=== PATIENT | female | born 2000 | race Caucasian/White ===

== ENCOUNTER 2022-04-01 21:58 | Emergency (ER) | payer BC, SELFPAY ==
[2022-04-01 22:19] VITALS: BP 118/78; PULSE 85; RESP 16; TEMP 36.7; O2SAT 99; BMI 25.7
[2022-04-01 22:49] LABS: Strep A DNA Probe* NOT DETECTED (Not Detectd)
[2022-04-01 23:01] LABS: PCR FLU A Negative PCR FLU A (Negative); PCR FLU B Negative PCR FLU B (Negative)
[2022-04-01 23:06] LABS: SARS PCR* Negative SARS-CoV-2 (Negative)
--- NOTE | 2022-04-01 23:22 | ED_ITS ---
HPI - URI/Sore Throat General Time Seen by Provider: 23:22 Date Seen: 04/01/22 Chief Complaint: Sore Throat Stated Complaint: Sore Throat Time Seen by Provider: 04/01/22 23:22 Source: patient, RN notes reviewed and old records reviewed Mode of arrival: ambulatory Limitations: no limitations History of Present Illness HPI Narrative: Patient is a very pleasant 21-year-old female previously healthy who notes onset of a sore throat yesterday and associated is chin with some burning when she breathes and back pain. This morning patient notes white specks at the back of her throat and states that is hard to swallow although she has had food and drink today. She does have recent exposure to her friend who is here today who are had bronchitis type symptoms. She also notes she was exposed to her dad who had a cough. She herself does not have a cough. She has been nauseated. She has been able to cough up some white phlegm occasionally. She has no fever chil ls. She did have youth care professional yesterday for some back pain which she has chronically. No history of mono or strep exposure Related Data Home Medications Medication Instructions Recorded Confirmed sertraline 50 mg tablet 50 mg PO DAILY 04/01/22 04/01/22 Allergies Allergy/AdvReac Type Severity Reaction Status Date / Time No Known Drug Allergies Allergy Verified 04/01/22 22:22 Review of Systems Status of ROS: Reports: 6 or more systems reviewed and unremarkable except as noted in History and below [facility] Medical History Anxiety Depression Surgical History No significant past surgical history Social History Smoking Status: Never smoker Do you use any of these nicotine containing products: None Second hand tobacco smoke exposure: No How often do you have a drink containing alcohol: never How often do you have six or more drinks on one occasion: Never AUDIT-C Alcohol total score: 0 Non-prescribed substance use: denies use Exam Narrative: Exam Narrative: Patient is alert and oriented. Nontoxic in appearance. No muffled voice. Normal voice at this time. Eyes are clear. TMs bilaterally without erythema or fluid. Neck is supple. Mild cervical lymphadenopathy anterior. No posterior cervical lymphadenopathy. Oral cavity shows enlarged tonsils with multiple foci of exudate. Airway is open. No difficulty with respirations at this time no stridor. Heart with regular rate and rhythm lungs are clear to auscultation all lung reeder and moving all extremities. Const: Vital Signs, click to edit/add: Vital Signs - 24 hr 04/01/22 22:19 04/02/22 00:00 04/02/22 00:10 Temperature 98.0 F 98.0 F 98.0 F Pulse Rate [Right Pulse Oximeter] 85 84 84 Respiratory Rate 16 16 16 Blood Pressure [Ri ght Upper Arm] 118/78 120/74 120/74 Pulse Oximetry 99 99 Oxygen Delivery Me thod Room Air Room Air Documenting provider has reviewed patient's vital signs: yes Course Course Hospital Course: Differential diagnosis could include strep, mono, influenza, COVID, viral pharyngitis. Vital Signs Vital signs: Initial Vital Signs Temperature 98.0 F 04/01/22 22:19 Temperature Source Temporal Artery Scan 04/01/22 22:19 Pulse Rate 85 04/01/22 22:19 Respiratory Rate 16 04/01/22 22:19 Blood Pressure 118/78 04/01/22 22:19 Blood Pressure Mean 91 04/01/22 22:19 Blood Pressure Position Sitting 04/01/22 22:19 Pulse Oximetry 99 04/01/22 22:19 Oxygen Delivery Method 04/01/22 22:19 Vital Signs Temperature 98.0 F 04/01/22 22:19 Pulse Rate 85 04/01/22 22:19 Respiratory Rate 16 04/01/22 22:19 Blood Pressure 118/78 04/01/22 22:19 Pulse Oximetry 99 04/01/22 22:19 Oxygen Delivery Method 04/01/22 22:19 Temperature 98.0 F 04/02/22 00:10 Pulse Rate 84 04/02/22 00:10 Respiratory Rate 16 04/02/22 00:10 Blood Pressure 120/74 04/02/22 00:10 Pulse Oximetry 99 04/02/22 00:00 Oxygen Delivery Method 04/02/22 00:00 MDM - URI/Sore Throat MDM Narrative Medical decision making narrative: 1. Tonsillitis-patient is negative for strep COVID and influenza. Throat culture was accomplished. Given the nature of patient's appearance I would recommend antibiotic treatment. I do have a slight worry for mono and therefore will treat with Zithromax 500 mg today followed by 250 mg daily for 4 days. If patient is much improved after 24 hours she should finish out her course of antibiotic and assume that this was a bacterial infection. Of course a throat culture again is pending. If patient is not improve would recommend follow-up with her primary clinic. I did explain that a mono test today would not be helpful giving the that she has had symptoms for only 24 hours. Recommend repeat exam abdominal exam if she test positive for mono. Abdomen is soft nontender today. 2. Disposition-Tylenol ibuprofen as needed for discomfort. Return to the emergency room for vomiting, inability to eat, worsening symptoms and as needed. Medical Records Attestation: I reviewed the patient's medical records. Lab Data Attestation: I reviewed the patient's lab results. Labs: Lab Results 04/01/22 04/01/22 Range/Units 22:11 22:11 SARS-CoV-2 (PCR) Negative SARS-CoV-2 (Negative) Influenza Type A (PCR) Negative PCR FLU A (Negative) Influenza Type B (PCR) Negative PCR FLU B (Negative) Group A Strep DNA NOT DETECTED (Not Detectd) Discharge Plan Discharge Clinical Impression: Acute tonsillitis Patient Disposition: Home, Self-Care Condition: Unchanged Additional Instructions: Start zithromax for tonsillitis and possibility of non -strep infection If you are better after 24 hours, finish the full course Alternate tylenol or ibuprofen every 4 hours as needed for discomfort Push fluids if not improved, I suggest follow up with your primary MD next week. I would ask that a mono be checked and abdominal exam done. Return to the ER for worsening symptoms Prescriptions: No Action sertraline 50 mg tablet 50 mg PO DAILY Follow Up/Referrals: Tata Weeks MD [Staff Physician] - Stand Alone Forms: GOGETMi / ?.?? Info Instructions
[2022-04-02] VITALS: BP 120/74; PULSE 84; RESP 16; TEMP 36.7; O2SAT 99
[2022-04-02 00:10] VITALS: BP 120/74; PULSE 84; RESP 16; TEMP 36.7
== END 2022-04-02 00:10 | disposition home or self-care (01) ==
PROVIDERS: Emergency Provider Family Medicine; PCP Family Medicine
DX: J03.90 Acute tonsillitis, unspecified (principal)
CPT/HCPCS: 87070; 87631; 87651; 99283

== ENCOUNTER 2022-04-23 14:38 | Inpatient (IN) | payer BC, SELFPAY ==
[2022-04-23] VITALS (13 sets, daily range): BP systolic 121–152; BP diastolic 67–89; PULSE 56–73; RESP 14–16; TEMP 35.6–37.9; O2SAT 96–100; BMI 27.1
--- NOTE | 2022-04-23 15:07 | ED_ITS ---
HPI - Abdominal Pain General Date Seen: 04/23/22 Chief Complaint: Abdominal Pain Stated Complaint: Abdominal Pain Time Seen by Provider: 04/23/22 14:56 Source: patient Mode of arrival: ambulatory Limitations: no limitations History of Present Illness HPI narrative: Patient is a 21-year-old female who presents here with severe abdominal pain, this started acutely at 1:00 a.m. this afternoon, is associated with vomiting, she describes her pain in her lower abdomen bilaterally, with radiation to her back. She did have this before has never had this in the past. Denies a fevers chills, normal bowel movements, no vaginal discharge, tells me she is a lesbian and there is no possible way she is . No previous history of any abdominal surgeries or hospitalizations. Denies trauma injury, constipation, history of kidney stones, UTIs, or STDs. She has fairly vulgar in the emergency room swearing. MD elicited complaint: abdominal pain Pertinent past history: none Onset (ago): hour(s) Pain Consistency: constant Location: RLQ, LLQ and suprapubic Severity: severe Quality: cramping and sharp Radiation: back Migration to: no migration Exacerbating factors: movement Relieving factors: nothing Associated symptoms: denies other symptoms Related Data Date of last menstrual period: 04/23/22 Patient : No Home Medications Medication Instructions Recorded Confirmed sertraline 50 mg tablet 50 mg PO DAILY 04/01/22 04/01/22 Allergies Allergy/AdvReac Type Severity Reaction Status Date / Time No Known Drug Allergies Allergy Verified 04/23/22 16:49 Review of Systems Status of ROS Reports: 10 or more systems reviewed and unremarkable except as noted in History and below [facility] Medical History Anxiety Depression Surgical History No significant past surgical history Social History Smoking Status: Never smoker Do you use any of these nicotine containing products: None Second hand tobacco smoke exposure: No How often do you have a drink containing alcohol: never How often do you have six or more drinks on one occasion: Never AUDIT-C Alcohol total score: 0 Non-prescribed substance use: denies use Exam Narrative: Exam Narrative: Patient is seen and stabilization room 1, she has thoracic around, uncomfortable, complaining of pain in her lower abdomen. She is swearing also. Her pupils are equal round reactive to light there is no scleral icterus redness or TMs are normal, oropharynx is normal, recent wisdom teeth surgery. For which she was prescribed Vicodin. Chest is clear bilaterally there is no wheezing crackles noted heart sounds her abdomen is soft, but she complains of pain in h er lower abdomen, I cannot hear any bowel sounds there is no CVA tenderness, moves all extremities there is no petechiae rashes. Const: Vital Signs, click to edit/add: Vital Signs - 24 hr 04/23/22 14:45 04/23/22 18:22 Temperature 96.0 F L 98.3 F Pulse Rate [Pulse Oximeter] 67 56 L Respiratory Rate 14 Blood Pressure [Ri ght Upper Arm] 152/67 H 129/84 Pulse Oximetry 98 98 Oxygen Delivery Me thod Room Air Room Air Documenting provider has reviewed patient's vital signs: yes Course Course Hospital Course: Patient is just thrashing around too much we will start an IV I will give her some pain medication, to see if we can, down enough that I can do a legitimate examination on her abdomen, we will order labs with the abdominal pain workup, and likely some imaging studies. Reevaluation(s) Reevaluation #1: Patient seems to be a little bit better, at least with her pain, she is still uncomfortable, still with pain in her lower abdominal region, the CT shows intussusception I contacted her surgeon Dr. Rucker, she is coming in to see the patient in taking her to the operating room. He is ASA 1 for the surgery, we will continue her fluids. Time: 17:59 Vital Signs Vital signs: Initial Vital Signs Temperature 96.0 F L 04/23/22 14:45 Temperature Source Temporal Artery Scan 04/23/22 14:45 Pulse Rate 67 04/23/22 14:45 Blood Pressure 152/67 H 04/23/22 14:45 Blood Pressure Mean 95 04/23/22 14:45 Blood Pressure Position Sitting 04/23/22 14:45 Pulse Oximetry 98 04/23/22 14:45 Oxygen Delivery Method 04/23/22 14:45 Vital Signs Temperature 96.0 F L 04/23/22 14:45 Pulse Rate 67 04/23/22 14:45 Blood Pressure 152/67 H 04/23/22 14:45 Pulse Oximetry 98 04/23/22 14:45 Oxygen Delivery Method 04/23/22 14:45 Temperature 98.3 F 04/23/22 18:22 Pulse Rate 56 L 04/23/22 18:22 Respiratory Rate 14 04/23/22 18:22 Blood Pressure 129/84 04/23/22 18:22 Pulse Oximetry 98 04/23/22 18:22 Oxygen Delivery Method 04/23/22 18:22 MDM - Abdominal Pain MDM Narrative Medical decision making narrative: During the evaluation of this patient I considered multiple differential diagnos is including life-threatening differentials which are appendicitis, aortic aneurysm, mesenteric ischemia, bowel perforation, ectopic , volvulus and bowel obstruction, other differential diagnosis include but are not limited to inflammatory bowel disease, cholecystitis, pancreatitis, hepatitis, gastritis, GERD, diverticulitis, peptic ulcer disease, pyelonephritis/UTI, renal colic/stone, pelvic inflammatory disease, cervicitis, endometritis, intrauterine , dysfunctional uterine bleeding, ovarian cyst/torsion, spontaneous as well as other etiologies Medical Records Attestation: I reviewed the patient's medical records. Medical records narrative: Was able to see the records from [facility] and there is no recent hospitalizations or surgeries. Recent visit for depression, Lab Data Attestation: I reviewed the patient's lab results. Labs: Lab Results 04/23/22 04/23/22 04/23/22 Range/Units 14:55 14:55 14:55 WBC 10.79 (4.50-11.00) K/uL RBC 4.93 (4.00-5.20) m/uL Hgb 13.9 (12.0-16.0) gm/dL Hct 42.5 (33.0-51.0) % MCV 86 (80-100) fL MCH 28 (26-34) pg MCHC 33 (32-36) gm/dL RDW Coeff of Kadeem 12.7 (11.5-15.5) % Plt Count 326 (140-440) K/uL Neut % (Auto) 77.5 H (42.0-72.0) % Lymph % (Auto) 16.5 L (20-44) % [place] % (Auto) 5.1 (0.0-11.0) % Eos % (Auto) 0.2 (0.0-7.0) % Baso % (Auto) 0.5 (0.0-3.0) % Neut # (Auto) 8.40 H (1.7-7.0) K/uL Lymph # (Auto) 1.80 (0.90-2.90) K/uL [place] # (Auto) 0.60 (0.00-0.90) K/UL Eos # (Auto) 0.02 (0.00-0.50) K/uL Baso # (Auto) 0.05 (0.00-0.30) K/uL Sodium 141 (135-149) mmol/L Potassium 3.3 L (3.6-5.1) mmol/L Chloride 108 (96-114) mmol/L Carbon Dioxide 20 (20-32) mmol/L BUN 11 (5-24) mg/dL Creatinine 0.6 (0.5-1.5) mg/dL Estimated Creat Clear 127.00 Estimated GFR 130 ml/min Glucose 151 H (60-115) mg/dL Calcium 9.1 (8.4-10.6) mg/dL Lactate Baseline (0.5-1.9) mmol/L Amylase 76 (18-89) U/L HCG, Qual (Negative) Urine Color (Yellow) Urine Appearance (Clear) Urine pH (5.0-8.5) Ur Specific [place] (1.000-1.030) Urine Protein (Negative) Urine Glucose (UA) (Negative) Urine Ketones (Negative) Urine Blood (Negative) Urine Nitrite (Negative) Urine Bilirubin (Negative) Urine Urobilinogen (0.2-1.0) Ur Leukocyte Esterase (Negative) Urine RBC (0-2) Urine WBC (0-5) Ur Squamous Epith Cells (None-Few) Urine Bacteria (None) Urine Opiates Screen (Negative) Ur Oxycodone Screen (Negative) Urine Methadone Screen (Negative) Ur Propoxyphene Screen (Negative) Ur Barbiturates Screen (Negative) U Tricyclic Antidepress (Negative) Ur Phencyclidine Scrn (Negative) Ur Amphetamines Screen (Negative) U Methamphetamines Scrn (Negative) U Benzodiazepines Scrn (Negative) Urine Cocaine Screen (Negative) U Marijuana (THC) Screen (Negative) Ur Drug Screen Comment Ethyl Alcohol < 0.01 L (0.01-0.03) % SARS-CoV-2 (PCR) (Negative) 04/23/22 04/23/22 04/23/22 Range/Units 15:52 15:52 17:08 WBC (4.50-11.00) K/uL RBC (4.00-5.20) m/uL Hgb (12.0-16.0) gm/dL Hct (33.0-51.0) % MCV (80-100) fL MCH (26-34) pg MCHC (32-36) gm/dL RDW Coeff of Kadeem (11.5-15.5) % Plt Count (140-440) K/uL Neut % (Auto) (42.0-72.0) % Lymph % (Auto) (20-44) % [place] % (Auto) (0.0-11.0) % Eos % (Auto) (0.0-7.0) % Baso % (Auto) (0.0-3.0) % Neut # (Auto) (1.7-7.0) K/uL Lymph # (Auto) (0.90-2.90) K/uL [place] # (Auto) (0.00-0.90) K/UL Eos # (Auto) (0.00-0.50) K/uL Baso # (Auto) (0.00-0.30) K/uL Sodium (135-149) mmol/L Potassium (3.6-5.1) mmol/L Chloride (96-114) mmol/L Carbon Dioxide (20-32) mmol/L BUN (5-24) mg/dL Creatinine (0.5-1.5) mg/dL Estimated Creat Clear Estimated GFR ml/min Glucose (60-115) mg/dL Calcium (8.4-10.6) mg/dL Lactate Baseline (0.5-1.9) mmol/L Amylase (18-89) U/L HCG, Qual Negative (Negative) Urine Color Yellow (Yellow) Urine Appearance Turbid A (Clear) Urine pH 6.0 (5.0-8.5) Ur Specific [place] >= 1.030 (1.000-1.030) Urine Protein Negative (Negative) Urine Glucose (UA) Negative (Negative) Urine Ketones 3+ A (Negative) Urine Blood 1+ A (Negative) Urine Nitrite Negative (Negative) Urine Bilirubin Negative (Negative) Urine Urobilinogen 0.2 (0.2-1.0) Ur Leukocyte Esterase Negative (Negative) Urine RBC 0-2 (0-2) Urine WBC 2-5 (0-5) Ur Squamous Epith Cells None (None-Few) Urine Bacteria Few A (None) Urine Opiates Screen POSITIVE A* (Negative) Ur Oxycodone Screen Negative (Negative) Urine Methadone Screen Negative (Negative) Ur Propoxyphene Screen Negative (Negative) Ur Barbiturates Screen Negative (Negative) U Tricyclic Antidepress Negative (Negative) Ur Phencyclidine Scrn Negative (Negative) Ur Amphetamines Screen Negative (Negative) U Methamphetamines Scrn Negative (Negative) U Benzodiazepines Scrn Negative (Negative) Urine Cocaine Screen Negative (Negative) U Marijuana (THC) Screen POSITIVE A* (Negative) Ur Drug Screen Comment See Note Ethyl Alcohol (0.01-0.03) % SARS-CoV-2 (PCR) Negative SARS-CoV-2 (Negative) 04/23/22 Range/Units 17:35 WBC (4.50-11.00) K/uL RBC (4.00-5.20) m/uL Hgb (12.0-16.0) gm/dL Hct (33.0-51.0) % MCV (80-100) fL MCH (26-34) pg MCHC (32-36) gm/dL RDW Coeff of Kadeem (11.5-15.5) % Plt Count (140-440) K/uL Neut % (Auto) (42.0-72.0) % Lymph % (Auto) (20-44) % [place] % (Auto) (0.0-11.0) % Eos % (Auto) (0.0-7.0) % Baso % (Auto) (0.0-3.0) % Neut # (Auto) (1.7-7.0) K/uL Lymph # (Auto) (0.90-2.90) K/uL [place] # (Auto) (0.00-0.90) K/UL Eos # (Auto) (0.00-0.50) K/uL Baso # (Auto) (0.00-0.30) K/uL Sodium (135-149) mmol/L Potassium (3.6-5.1) mmol/L Chloride (96-114) mmol/L Carbon Dioxide (20-32) mmol/L BUN (5-24) mg/dL Creatinine (0.5-1.5) mg/dL Estimated Creat Clear Estimated GFR ml/min Glucose (60-115) mg/dL Calcium (8.4-10.6) mg/dL Lactate Baseline 1.8 (0.5-1.9) mmol/L Amylase (18-89) U/L HCG, Qual (Negative) Urine Color (Yellow) Urine Appearance (Clear) Urine pH (5.0-8.5) Ur Specific [place] (1.000-1.030) Urine Protein (Negative) Urine Glucose (UA) (Negative) Urine Ketones (Negative) Urine Blood (Negative) Urine Nitrite (Negative) Urine Bilirubin (Negative) Urine Urobilinogen (0.2-1.0) Ur Leukocyte Esterase (Negative) Urine RBC (0-2) Urine WBC (0-5) Ur Squamous Epith Cells (None-Few) Urine Bacteria (None) Urine Opiates Screen (Negative) Ur Oxycodone Screen (Negative) Urine Methadone Screen (Negative) Ur Propoxyphene Screen (Negative) Ur Barbiturates Screen (Negative) U Tricyclic Antidepress (Negative) Ur Phencyclidine Scrn (Negative) Ur Amphetamines Screen (Negative) U Methamphetamines Scrn (Negative) U Benzodiazepines Scrn (Negative) Urine Cocaine Screen (Negative) U Marijuana (THC) Screen (Negative) Ur Drug Screen Comment Ethyl Alcohol (0.01-0.03) % SARS-CoV-2 (PCR) (Negative) Imaging Data CT scan - abdomen: Attestation: I have reviewed the pertinent imaging results. My impression: Intussusception, Radiologist's impression: Patient: DEREK RAO Facility:?[facility] Patient ID:?[id number] Site Patient ID:?[id number]. Site :?[id number] Study:?CT Abdomen/Pelvis W/ 78CC [id number]/[id number] 4:56:24 PM Ordering Physician:Randee Avila Final Report: INDICATION: Severe lower abdominal pain. TECHNIQUE: CT abdomen and pelvis acquired with 78 cc Isovue 370 IV contrast. COMPARISON: None. FINDINGS: Lower chest: Scattered dependent atelectasis Liver: Decreased hepatic attenuation. No suspicious masses. Gallbladder and bile ducts: Nonspecific cholelithiasis without CT evidence of cholecystitis. Pancreas: Unremarkable. No mass or inflammation. Spleen: Unremarkable. Normal in size. No masses. Adrenal glands: Unremarkable. No nodules. Kidneys: Unremarkable. No suspicious masses, stones, or hydronephrosis. GI tract: Multiple thickened loops of distal ileum with suggestion of interposed mesenteric fat concerning for small bowel intussusception. Additionally, some swirling of vasculature best seen on coronal imaging with suggestion of possible 2 transition points (series 4/image 37). Submucosal fatty infiltration of the proximal and transverse colon likely suggestive of remote/recurrent colitis. Small appendicolith. Otherwise no appendicitis. Vasculature: Abdominal aorta is normal in caliber. Mesenteric arteries are patent. Lymph nodes: No lymphadenopathy. Peritoneum/Abdominal Wall: Small volume free intraperitoneal fluid. No free intraperitoneal air Pelvis: Unremarkable. Bones: Unremarkable for age. IMPRESSION: Findings suggestive of small bowel, likely ileum, intussusception in the pelvis. Additional swirling of vasculature with possible two transition points which could suggest superimposed closed loop obstruction. Recommend correlation with lactic acid and surgical consultation. Mildly decreased hepatic attenuation which could suggest steatosis. Nonspecific gallbladder wall thickening without distention or CT evidence of cholelithiasis, possibly from volume resuscitation. Recommend correlation for right upper quadrant tenderness. Case discussed with Austin Posada at 3:30 p.m. on 04/23/2022. Please note that all CT scans at this facility use dose modulation, iterative reconstruction, and/or weight-based dosing when appropriate to reduce radiation dose to as low as reasonably achievable. Dictated by Jean Green MD @ 04/23/2022 5:35:04 PM (Electronic Signature) Discharge Plan Discharge Clinical Impression: Acquired intussusception of intestine Patient Disposition: Admitted As Inpatient Condition: Improved
[2022-04-23 15:18] LABS: Basophils Absolute Auto 0.05 K/uL (0.00-0.30); Basophils Percent Auto 0.5 % (0.0-3.0); Eosinophils Absolute Auto 0.02 K/uL (0.00-0.50); Eosinophils Percent Auto 0.2 % (0.0-7.0); Hematocrit 42.5 % (33.0-51.0); Hemoglobin* 13.9 gm/dL (12.0-16.0); Immature Granulocytes Abs Auto 0.02 K/uL (0.00-0.30); Immature Granulocytes Pct Auto 0.2 %; Lymphocytes Percent Auto 16.5 % (20-44); Mean Corpuscular HGB Conc 33 gm/dL (32-36); Mean Corpuscular Hemoglobin 28 pg (26-34); Mean Corpuscular Volume 86 fL (80-100); Monocytes Percent Auto 5.1 % (0.0-11.0); Neutrophils Percent Auto 77.5 % (42.0-72.0); Platelet Count* 326 K/uL (140-440); RDW Coefficient of Variation % 12.7 % (11.5-15.5); Red Blood Count 4.93 m/uL (4.00-5.20); White Blood Count* 10.79 K/uL (4.50-11.00)
[2022-04-23] MEDS: HYDROmorphone 0.5 mg/0.5 ml inj IVP (15:18)
[2022-04-23] MEDS: KETOROLAC 30 MG/ML inj IVP (15:18)
[2022-04-23] MEDS: ONDANSETRON 2 MG/ML inj 4 MG IVP (15:18)
[2022-04-23] MEDS: 0.9 % SODIUM CHLORIDE 1000 ml 1,000 ML IV ×3 (15:19→18:22)
[2022-04-23 15:28] LABS: Chloride* 108 mmol/L (96-114); Sodium* 141 mmol/L (135-149)
[2022-04-23 15:29] LABS: Potassium* 3.3 mmol/L (3.6-5.1)
[2022-04-23 15:30] LABS: Slide Review Reflex No
[2022-04-23 15:31] LABS: Carbon Dioxide* 20 mmol/L (20-32); Creatinine* 0.6 mg/dL (0.5-1.5); Estimated Glomerular Filt Rate 130 ml/min
[2022-04-23 15:32] LABS: Amylase* 76 U/L (18-89); Blood Urea Nitrogen* 11 mg/dL (5-24); Calcium* 9.1 mg/dL (8.4-10.6); Ethanol* < 0.01 % (0.01-0.03); Glucose* 151 mg/dL (60-115)
[2022-04-23] MEDS: LORazepam 2 MG/ML inj 1 MG IVP (15:40)
[2022-04-23 15:59] LABS: HCG Qualitative* Negative (Negative)
[2022-04-23 16:13] LABS: Appearance Urine Turbid (Clear); Bilirubin Urine Negative (Negative); Blood Urine 1+ (Negative); Color Urine Yellow (Yellow); Glucose Urine Negative (Negative); Ketones Urine 3+ (Negative); Leukocyte Esterase Urine Negative (Negative); Nitrite Urine Negative (Negative); Protein Urine Negative (Negative); Specific Gravity Urine >= 1.030 (1.000-1.030); Urobilinogen Urine 0.2 (0.2-1.0)
--- NOTE | 2022-04-23 16:18 | CRLHL7_ITS ---
For Patients: As a result of the Century Cures Act, medical imaging exams and procedure reports are released immediately into your electronic medical record. You may view this report before your referring provider. If you have questions, please contact your health care provider. INDICATION: Severe lower abdominal pain. TECHNIQUE: CT abdomen and pelvis acquired with 78 cc Isovue 370 IV contrast. COMPARISON: None. FINDINGS: Lower chest: Scattered dependent atelectasis Liver: Decreased hepatic attenuation. No suspicious masses. Gallbladder and bile ducts: Nonspecific cholelithiasis without CT evidence of cholecystitis. Pancreas: Unremarkable. No mass or inflammation. Spleen: Unremarkable. Normal in size. No masses. Adrenal glands: Unremarkable. No nodules. Kidneys: Unremarkable. No suspicious masses, stones, or hydronephrosis. GI tract: Multiple thickened loops of distal ileum with suggestion of interposed mesenteric fat concerning for small bowel intussusception. Additionally, some swirling of vasculature best seen on coronal imaging with suggestion of possible 2 transition points (series 4/image 37). Submucosal fatty infiltration of the proximal and transverse colon likely suggestive of remote/recurrent colitis. Small appendicolith. Otherwise no appendicitis. Vasculature: Abdominal aorta is normal in caliber. Mesenteric arteries are patent. Lymph nodes: No lymphadenopathy. Peritoneum/Abdominal Wall: Small volume free intraperitoneal fluid. No free intraperitoneal air Pelvis: Unremarkable. Bones: Unremarkable for age. IMPRESSION: Findings suggestive of small bowel, likely ileum, intussusception in the pelvis. Additional swirling of vasculature with possible two transition points which could suggest superimposed closed loop obstruction. Recommend correlation with lactic acid and surgical consultation. Mildly decreased hepatic attenuation which could suggest steatosis. Nonspecific gallbladder wall thickening without distention or CT evidence of cholelithiasis, possibly from volume resuscitation. Recommend correlation for right upper quadrant tenderness. Case discussed with Austin Posada at 3:30 p.m. on 04/23/2022. Please note that all CT scans at this facility use dose modulation, iterative reconstruction, and/or weight-based dosing when appropriate to reduce radiation dose to as low as reasonably achievable. Dictated by Jean Green MD @ 04/23/2022 5:35:04 PM (Electronically Signed)
[2022-04-23 16:20] LABS: Amphetamine Screen Urine Negative (Negative); Barbiturate Screen Urine Negative (Negative); Benzodiazepines Screen Urine Negative (Negative); Cocaine Screen Urine Negative (Negative); Methadone Screen Urine Negative (Negative); Methamphetamines Screen Urine Negative (Negative); Oxycodone Screen Urine Negative (Negative); Phencyclidine Screen Urine Negative (Negative); Tricyclic Antidepressant Urine Negative (Negative)
[2022-04-23 16:24] LABS: Bacteria Urine Few; RBC Urine 0-2 (0-2)
[2022-04-23 16:29] LABS: Cannabinoid Screen Urine POSITIVE (Negative)
[2022-04-23 16:30] LABS: Opiate Screen Urine POSITIVE (Negative)
[2022-04-23] MEDS: OLANZapine 5 MG/ML inj 2.5 MG IVP ×2 (16:35→18:22)
[2022-04-23 17:38] LABS: Lactate Sepsis w/Reflex* 1.8 mmol/L (0.5-1.9)
[2022-04-23 18:42] LABS: SARS PCR* Negative SARS-CoV-2 (Negative)
--- NOTE | 2022-04-23 19:24 | P.GSHP_ITS ---
History of Present Illness History of Present Illness Date Seen: 04/23/22 Chief complaint: Abdominal Pain Narrative: Richard Smith is a 21 year old female who presents to the emergency department in with severe abdominal pain which began abruptly at 1:00 p.m.. She states she vomited x1. She has not had any changes in her bowel habits, urinary symptoms, chest pain or shortness of breath. She states that her whole abdomen hurts. The pain is severe and she has been rising. Pain medicine does help somewhat. She has never had anything like this before. 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 She drinks alcohol and smokes cigarettes only rarely and socially. Smoking Status: Never smoker Do you use any of these nicotine containing products: None Second hand tobacco smoke exposure: No How often do you have a drink containing alcohol: never How often do you have six or more drinks on one occasion: Never AUDIT-C Alcohol total score: 0 Non-prescribed substance use: denies use Meds Home Medications and Allergies Home Medications Medication Instructions Recorded Confirmed Type sertraline 50 mg tablet 50 mg PO DAILY 04/01/22 04/01/22 History Allergies Allergy/AdvReac Type Severity Reaction Status Date / Time No Known Drug Allergies Allergy Verified 04/23/22 16:49 Exam Narrative: Exam Narrative: General appearance: Patient is in distress. She is cooperative and is oriented though she seems distracted secondary to her discomfort. Eyes: PERRLA, eye lids clear, and sclera white HENT Head: Normocephalic Ears: External ears normal Pulmonary: Clear to auscultation bilaterally Cardiovascular Heart: Regular rate and rhythm Extremities: warm and well perfused Gastrointestinal Abdominal: No scars. No hernias. She is tender to palpation with guarding. Musculoskeletal: Extremities: Upper: Both upper extremities have normal joint range of motion and intact strength. Lower: Both lower extremities have normal joint range of motion and intact strength. Skin: Normal skin color, texture, and turgor. No rashes or lesions. Neurologic: No focal deficits Psychiatric: Patient is in distress. She is cooperative however. Const: Vital Signs, click to edit/add: Vital Signs - 24 hr 04/23/22 14:45 04/23/22 18:22 Temperature 96.0 F L 98.3 F Pulse Rate [Pulse Oximeter] 67 56 L Respiratory Rate 14 Blood Pressure [Ri ght Upper Arm] 152/67 H 129/84 Pulse Oximetry 98 98 Oxygen Delivery Me thod Room Air Room Air Results Results Labs: White blood cell count is 10.7 with a left shift. She is mildly hypokalemic with a potassium of 3.2. Abdomen CT scan report/results: report reviewed and image reviewed Additional studies: CT scan of the abdomen pelvis shows findings suggestive of small-bowel, likely ileum, intussusception in the pelvis. Additional swirling of vasculature with possible to transition points which could suggest superimposed closed loop obstruction. Assessment and Plan Assessment and plan (1) Hypokalemia: Status: Acute (2) Acquired intussusception of intestine: Status: Acute Plan The patient is a 21-year-old female with likely bowel obstruction versus intussusception with concern for intestinal ischemia. And she also has mild hypokalemia. We are planning on emergent exploration. I would plan on laparoscopy with likely conversion to laparotomy and bowel resection. I did explain to the patient the rationale behind the surgery and that I had concern for bowel compromise based on her CT scan in her significant pain. We discuss the risks of surgery which include bleeding, anesthetic reaction, infection and anastomotic leak. We discussed for recovery from surgery. She again seemed somewhat distracted by her discomfort and because of this I did ask if I could call her family to get consent. The patient felt that she was able to consent. She expressed understanding and agreed to proceed with the stated procedure. We will plan on replacing her potassium as well.
[2022-04-23] MEDS: PIPERACILLIN/TAZOBACTAM 3.375 GM INJ IVPB (19:48)
[2022-04-23 21:24] LABS: Albumin* 4.7 g/dL (3.3-5.0)
[2022-04-23 21:27] LABS: Alanine Aminotransferase* 20 U/L (4-35); Alkaline Phosphatase* 60 U/L (40-150); Aspartate Amino Transferase* 29 U/L (12-35); Bilirubin Direct* 0.2 mg/dL (0.0-0.5); Bilirubin Total* 0.4 mg/dL (0.1-1.5); Lipase* 75 U/L (23-300); Total Protein* 7.3 g/dL (6.0-8.3)
[2022-04-23] MEDS: BUPIVACAINE 0.25% 30 ML INJECTION (22:19)
--- NOTE | 2022-04-23 22:26 | W.PM.NB ---
Nerve Block Nerve Block Time Seen by Provider: 19:40 Date Seen: 04/23/22 Type of block requested by surgeon for post-operative analgesia: TAP Side: bilateral Time out performed: Yes Verification of patient name: Yes Verification of date of : Yes Name of person performing procedure: Bindu Hsieh CRNA Continuous monitoring Was continuous monitoring of O2 sat, B/P, cnc applications engineer, recorded every 15 minutes?: Yes Procedure Checklist: sterile prep, needles and gloves Ultrasound guided. Images saved: Yes Medications given in 5ml increments after negative aspiration: Marcaine (30 total) %: 0.25 mL: 15 Needle gauge: 20 and Exparel (10 Total) mL: 5 Needle gauge: 20 Patient tolerated procedure well: Yes Block Charges Block Charge (with Pro Fee): TAP Bilateral Use of Ultrasound Machine for Block: Yes- US Guidance/pain block
--- NOTE | 2022-04-23 22:28 | P.ANES_ITS ---
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
--- NOTE | 2022-04-23 22:38 | P.GSOP_ITS ---
Operative Note Date of procedure: 04/23/22 Pre-op diagnosis: Small-bowel intussusception, possible closed loop small-bowel obstruction Post-op diagnosis: Small-bowel intussusception, likely secondary to Meckel's diverticulum Type of Procedure: 1. Exploratory laparoscopy converted to exploratory laparotomy 2. Small bowel resection 3. Incidental appendectomy Indications: The patient is a 21-year-old female who presented to the emergency department with a severe onset of abdominal pain. CT scan was obtained which showed concern for intussusception verses possible small bowel closed loop obstruction. I recommended surgical exploration and the patient agreed to proceed. Procedure Description: After discussing the risks and benefits of the procedure, the patient signed informed consent.? The operative site was marked and the patient was brought to the operating room and placed on the operating table in supine position.? Care was taken to pad the patient's pressure points.?? The patient was then intubated by anesthesia.??A tap block was performed by the perinatal instructor. Please see anesthesia's note for details. The operative site was then prepped and draped in the usual sterile fashion.? A time-out was then performed. I began by entering the abdomen via open Gonzalez technique in the midline just below the umbilicus. A port was placed in the abdomen insufflated. An additional 5 mm port was placed in the midline in the lower abdomen. The omentum was pulled away and the small bowel was run from the ligament of Treitz. There was a firm loop of small bowel noted. This was gently lifted up and it appeared as though there could be adhesions causing an obstruction. Therefore an additional 5 mm port was placed in the right lower abdomen. I then was able to grasp the bowel and lift it up to examine. Very interestingly, as suspected, intussusception was noted in the distal ileum approximately 20 cm from the ileocecal valve. The decision was then made to make an open incision. The ports were removed and then incision was made in the lower midline between the 2 port sites. Dissection was carried down through subcutaneous fat using cautery. The fascia was incised in the midline. The abdominal cavity was entered. An Lance wound retractor was placed in the wound. The small bowel was run starting at the ligament of Treitz. There were no masses noted in the small bowel or the mesentery. The small bowel was then run from the ileocecal valve proximally. Approximately 15-20 cm proximal to this there was a large sausage like loop of small bowel which was intussuscepted on itself. The appendix and colon was examined. They appeared normal, though the appendix did feel a bit firm in the midportion. The peritoneum was palpated and no nodules were noted. I then turned my attention to resecting the intussuscepted small bowel. A Mesenteric window was created at the proximal aspect. Through this, a blue load ALEXI stapler was placed and fired across the small bowel. Distally, similarly a mesenteric window was created and a blue load ALEXI stapler was fired. The mesentery was then divided with clamps and ligated with ties proximally. Care was taken to include a few palpable lymph nodes which were noted in the mesentery. Specimen was removed and marked with a stitch distally. This was opened on the back table. It appeared as though the patient likely had a Meckel's diverticulum which was the lead point for the intussusception. The small bowel was examined. The staple lines were losing more than usual; and because the small bowel was very thin and not inflamed, I suspected that the blue load kali may have been too high for the tissue. I therefore elected to refire a purple load of the Endo-ALEXI stapler just beyond the distal staple line to save length. Proximally, because there was the Meckel's diverticulum with likely inflammation, but possibly a mass, I resected an additional 3 cm for a wider margin. This was sent with the initial specimen as proximal ray resection with a stitch at the distal aspect. The staple lines now appeared hemostatic. I then examined the small bowel. The distal segment was close to the ileocecal valve and measured 12 cm. This was quite close to the ileocecal valve. The options were to perform the anastomosis where it was or perform an ileocecalectomy. I felt that an ileocecectomy would add time and risks of the operation and therefore elected to perform the small bowel to small bowel anastomosis. The ends of the bowel or brought together after ensuring that there was no twisting. A stay stitch was placed. The corners of the staple line were cut off on each end of the bowel. Because by this point the bowel was slightly more edematous, I felt that a blue load ALEXI stapler would be appropriate, and allowed me to create a large enough anastomosis. Through the enterotomies a blue load ALEXI stapler was passed. A 70 cm anastomosis was created. There was no bleeding noted on the staple line. The common enterotomy was closed with 3 0 silk sutures in an imbricating fashion. The anastomosis was widely patent. The mesenteric defect was then closed with running 3-0 silk suture. Once this was done it was noted that the appendix was sitting underneath the anastomosis. I then elected to perform an incidental an appendectomy to avoid a difficult surgery in the event of appendicitis in the future. The appendiceal mesentery was sequentially dissected and ligated with ties. Across the base of the appendix a purple load ALEXI stapler was fired. The staple line was not bleeding. The anastomosis was re-examined and again was widely patent. This lay nicely down in the pelvis. The abdomen was irrigated with saline. The Lance wound retractor was then removed from the abdomen. Gloves were changed and a clean instrument tray was brought in for closing. The fascia was closed with running looped 0 Maxon. The skin was then closed with 3 0 Vicryl dermal and 4 0 Monocryl running subcuticular suture. ? Sterile dressings were then applied. ? The patient was then woken and transported to the recovery area in stable condition. ? The patient tolerated the procedure well. Findings: Small-bowel intussusception likely from Meckel's diverticulum. Anesthesia: GETA Surgeon: Leidy Rucker MD Estimated blood loss (mL): 25 Additional Specimen Information: 1) ileum and re-resection of proximal margin with stitches on distal aspect 2) appendix Condition: stable Disposition: PACU
[2022-04-24] VITALS (14 sets, daily range): BP systolic 123–142; BP diastolic 75–90; PULSE 61–79; RESP 16–18; TEMP 36.7–37.5; O2SAT 96–100; BMI 27.1
[2022-04-24] MEDS: 5 % DEX/0.9 SOD CHL+KCL 20 mEq 1,000 ML 100 ML IV ×2 (00:29→10:04)
[2022-04-24] MEDS: POTASSIUM CHLORIDE 10 MEQ/100 ML PIGGYBACK 100 MEQ IVPB (00:36)
[2022-04-24] MEDS: HYDROCODONE-ACETAMIN 5-325 MG 1 TAB PO ×4 (02:44→19:19)
[2022-04-24] MEDS: HYDROmorphone 0.5 mg/0.5 ml inj IVP ×4 (03:45→09:54)
--- NOTE | 2022-04-24 06:35 | PC.NURSE ---
Status [id number] Pt arrived to 255 from PACU around 2320. Pt very drowsy upon arrival to room but would arouse with verbal stimuli. Alert and oriented throughout the night. VSS on room air. 1 lap site and midline incision, dressing CDI. C/o pain around 0230, PRN [place] given with minimal relief. PRN IV dilaudid given x2 with good relief. D5NS+20kcl @ 100mL/hr. IV K+ 10mEq given. Pt ambulated in hallway. Voiding without difficulty. Mom, Farhana, at bedside overnight. Pt observed resting well when pain was controlled.
[2022-04-24] MEDS: SERTRALINE 50 MG TABLET PO (08:35)
[2022-04-24 08:36] LABS: Eosinophils Percent Auto 0.1 % (0.0-7.0); Hematocrit 40.4 % (33.0-51.0); Hemoglobin* 13.3 gm/dL (12.0-16.0); Immature Granulocytes Pct Auto 0.2 %; Lymphocytes Percent Auto 5.6 % (20-44); Mean Corpuscular HGB Conc 33 gm/dL (32-36); Mean Corpuscular Hemoglobin 28 pg (26-34); Mean Corpuscular Volume 86 fL (80-100); Monocytes Percent Auto 7.4 % (0.0-11.0); Neutrophils Percent Auto 86.7 % (42.0-72.0); Platelet Count* 331 K/uL (140-440); RDW Coefficient of Variation % 12.8 % (11.5-15.5); Red Blood Count 4.68 m/uL (4.00-5.20)
[2022-04-24 08:50] LABS: Chloride* 104 mmol/L (96-114); Potassium* 4.3 mmol/L (3.6-5.1); Sodium* 137 mmol/L (135-149)
[2022-04-24 08:53] LABS: Blood Urea Nitrogen* 8 mg/dL (5-24); Carbon Dioxide* 27 mmol/L (20-32); Creatinine* 0.6 mg/dL (0.5-1.5); Estimated Glomerular Filt Rate 130 ml/min; Glucose* 175 mg/dL (60-115); Slide Review Reflex No
[2022-04-24 08:54] LABS: Calcium* 8.1 mg/dL (8.4-10.6)
[2022-04-24] MEDS: KETOROLAC 15 MG/ML inj IVP ×3 (11:50→23:51)
[2022-04-24] MEDS: LACTATED RINGERS 1000 ML 1,000 ML 75 ML IV ×2 (11:58→23:49)
--- NOTE | 2022-04-24 16:14 | PM.GSPN ---
Subjective Subjective Date Seen: 04/24/22 Interval history: Richard is doing well. Pain has ranged from a 5/10 to a 10/10 but is controlled with medication. No nausea. Has not been doing IS but has been ambulating. Exam Narrative: Exam Narrative: General: No acute distress CV: Regular rate and rhythm Respiratory: Clear to auscultation bilaterally Abdomen: Soft, minimally distended. Dressing with some blood staining noted. Const: Vital Signs, click to edit/add: Vital Signs - 24 hr 04/23/22 18:22 04/23/22 22:47 04/23/22 22:47 Temperature 98.3 F 99.3 F 99.3 F Pulse Rate 73 Pulse Rate [Apical ] Pulse Rate [Pulse Oximeter] 56 L Pulse Rate [Right Pulse Oximeter] Respiratory Rate 14 16 16 Blood Pressure 127/72 127/72 Blood Pressure [Le ft Arm] Blood Pressure [Ri ght Upper Arm] 129/84 Pulse Oximetry 98 100 100 Oxygen Delivery Me thod Room Air OxyMask Oxygen Flow Rate 8 04/23/22 22:52 04/23/22 22:57 04/23/22 23:02 Temperature Pulse Rate 73 64 69 Pulse Rate [Apical ] Pulse Rate [Pulse Oximeter] Pulse Rate [Right Pulse Oximeter] Respiratory Rate 16 16 16 Blood Pressure 121/89 129/84 124/88 Blood Pressure [Le ft Arm] Blood Pressure [Ri ght Upper Arm] Pulse Oximetry 100 100 100 Oxygen Delivery Me thod OxyMask OxyMask OxyMask Oxygen Flow Rate 8 8 4 04/23/22 23:07 04/23/22 23:12 04/23/22 23:17 Temperature 98.7 F Pulse Rate 60 60 60 Pulse Rate [Apical ] Pulse Rate [Pulse Oximeter] Pulse Rate [Right Pulse Oximeter] Respiratory Rate 16 16 16 Blood Pressure 132/82 139/84 136/84 Blood Pressure [Le ft Arm] Blood Pressure [Ri ght Upper Arm] Pulse Oximetry 100 100 100 Oxygen Delivery Me thod OxyMask Room Air Room Air Oxygen Flow Rate 2 04/23/22 23:47 04/23/22 23:20 04/23/22 23:30 Temperature 100.2 F H 100.2 F H Pulse Rate Pulse Rate [Apical ] Pulse Rate [Pulse Oximeter] Pulse Rate [Right Pulse Oximeter] 62 62 63 Respiratory Rate 16 16 16 Blood Pressure Blood Pressure [Le ft Arm] 127/82 127/82 130/82 Blood Pressure [Ri ght Upper Arm] Pulse Oximetry 97 97 96 Oxygen Delivery Me thod Room Air Room Air Room Air Oxygen Flow Rate 04/23/22 23:45 04/24/22 00:00 04/23/22 23:47 Temperature Pulse Rate Pulse Rate [Apical ] Pulse Rate [Pulse Oximeter] Pulse Rate [Right Pulse Oximeter] 68 69 Respiratory Rate 16 16 Blood Pressure Blood Pressure [Le ft Arm] 126/77 123/80 Blood Pressure [Ri ght Upper Arm] Pulse Oximetry 96 98 Oxygen Delivery Ny thod Room Air Room Air Room Air Oxygen Flow Rate 04/24/22 00:15 04/24/22 00:45 04/24/22 01:15 Temperature 99.5 F Pulse Rate Pulse Rate [Apical ] Pulse Rate [Pulse Oximeter] Pulse Rate [Right Pulse Oximeter] 70 68 70 Respiratory Rate 16 16 16 Blood Pressure Blood Pressure [Le ft Arm] 133/85 132/81 138/90 H Blood Pressure [Ri ght Upper Arm] Pulse Oximetry 97 96 98 Oxygen Delivery Ny thod Room Air Room Air Room Air Oxygen Flow Rate 04/24/22 02:15 04/24/22 03:15 04/24/22 04:15 Temperature 99.4 F 99 F Pulse Rate Pulse Rate [Apical ] Pulse Rate [Pulse Oximeter] Pulse Rate [Right Pulse Oximeter] 70 73 61 Respiratory Rate 16 16 18 Blood Pressure Blood Pressure [Le ft Arm] 137/83 142/81 H 132/82 Blood Pressure [Ri ght Upper Arm] Pulse Oximetry 98 98 98 Oxygen Delivery Ny thod Room Air Room Air Room Air Oxygen Flow Rate 04/24/22 05:15 04/24/22 07:30 04/24/22 07:30 Temperature Pulse Rate Pulse Rate [Apical ] 70 Pulse Rate [Pulse Oximeter] Pulse Rate [Right Pulse Oximeter] 63 Respiratory Rate 16 Blood Pressure Blood Pressure [Le ft Arm] 142/80 H Blood Pressure [Ri ght Upper Arm] Pulse Oximetry 97 98 Oxygen Delivery Ny thod Room Air Oxygen Flow Rate 04/24/22 07:30 04/24/22 11:00 Temperature 98.4 F 98.2 F Pulse Rate Pulse Rate [Apical ] 71 Pulse Rate [Pulse Oximeter] Pulse Rate [Right Pulse Oximeter] 70 Respiratory Rate 18 18 Blood Pressure Blood Pressure [Le ft Arm] 139/76 127/75 Blood Pressure [Ri ght Upper Arm] Pulse Oximetry 98 100 Oxygen Delivery Me thod Room Air Room Air Oxygen Flow Rate Labs/Imaging Labs Labs: White blood cell count is elevated at 19 today Hemoglobin is stable. Electrolytes are now within normal limits. She is mildly hyperglycemic, however she has been on D5. Progress Note: A&P Assessment and plan (1) Hypokalemia: Problem details: Resolved Status: Acute (2) Acquired intussusception of intestine: Status: Acute Plan The patient is a 21-year-old female who is postop day 1 status post ex lap and small bowel resection for small bowel intussusception likely secondary to Meckel's diverticulum. Pathology is pending. -will switch maintenance IV fluids to LR from D5 given hyperglycemia and now corrected potassium -encourage IS and ambulation -clear liquid diet. Will wait to advance farther until patient has antegrade bowel function -if hemoglobin remains stable tomorrow will start Lovenox. SCDs for now.
--- NOTE | 2022-04-24 19:31 | PC.NURSE ---
: Pt. up independently in room and hallway several times. Incisional pain rated 3-5/10, alleviated w/PRN Toradol, Dilaudid and PO [place]. Tolerating sips of clears well, no nausea. Noting belching and hiccups. MD aware. Adequately voiding. IVF changed to LR @ 75/hr. Multiple visitors this shift. Pt. napped off and on between doses of pain medication. Ice pack useful for pain control.
[2022-04-25] VITALS (8 sets, daily range): BP systolic 116–134; BP diastolic 65–88; PULSE 65–90; RESP 16–18; TEMP 36.8–37.1; O2SAT 90–100
[2022-04-25] MEDS: HYDROCODONE-ACETAMIN 5-325 MG 1 TAB PO ×5 (03:52→20:26)
--- NOTE | 2022-04-25 06:33 | PC.NURSE ---
Status [id number] Alert and oriented. PRN [place] given x2 and PRN Toradol given x1. Using ice pack with relief. VSS on room air. Up independently. Ambulating halls. LR at 75mL/hr. Midline incision dressing has old bloody drainage that has been outlined. Continues on clear liquids. Bowel sounds active, no BM. Pt observed resting well between cares. ???
[2022-04-25 07:05] LABS: Basophils Absolute Auto 0.04 K/uL (0.00-0.30); Basophils Percent Auto 0.4 % (0.0-3.0); Eosinophils Absolute Auto 0.06 K/uL (0.00-0.50); Eosinophils Percent Auto 0.7 % (0.0-7.0); Hematocrit 37.4 % (33.0-51.0); Hemoglobin* 12.1 gm/dL (12.0-16.0); Immature Granulocytes Abs Auto 0.03 K/uL (0.00-0.30); Immature Granulocytes Pct Auto 0.3 %; Lymphocytes Percent Auto 17.2 % (20-44); Mean Corpuscular HGB Conc 32 gm/dL (32-36); Mean Corpuscular Hemoglobin 28 pg (26-34); Mean Corpuscular Volume 87 fL (80-100); Monocytes Percent Auto 9.4 % (0.0-11.0); Neutrophils Absolute Auto 6.62 K/uL (1.7-7.0); Platelet Count* 278 K/uL (140-440); RDW Coefficient of Variation % 13.1 % (11.5-15.5); Red Blood Count 4.28 m/uL (4.00-5.20); White Blood Count* 9.19 K/uL (4.50-11.00)
[2022-04-25 07:06] LABS: Slide Review Reflex No
[2022-04-25 07:13] LABS: Chloride* 106 mmol/L (96-114); Sodium* 138 mmol/L (135-149)
[2022-04-25 07:16] LABS: Carbon Dioxide* 27 mmol/L (20-32); Creatinine* 0.5 mg/dL (0.5-1.5); Estimated Glomerular Filt Rate 136 ml/min
[2022-04-25 07:17] LABS: Blood Urea Nitrogen* 9 mg/dL (5-24); Calcium* 8.5 mg/dL (8.4-10.6); Glucose* 104 mg/dL (60-115)
[2022-04-25] MEDS: SERTRALINE 50 MG TABLET PO (08:02)
--- NOTE | 2022-04-25 11:54 | PM.GSPN ---
Subjective Subjective Date Seen: 04/25/22 Interval history: Richard is doing well. Her pain is 4/10. She has not had nausea. She is not passing any gas. She would like to wash her hair today. She has been up ambulating. Exam Narrative: Exam Narrative: General: No acute distress CV: Regular rate and rhythm Respiratory: Breathing nonlabored on room air Abdomen: Soft to though very slightly distended. A small amount of ecchymosis around the incision. No erythema. Const: Vital Signs, click to edit/add: Vital Signs - 24 hr 04/24/22 15:00 04/24/22 15:00 04/24/22 15:00 Temperature 98.3 F Pulse Rate [Apical ] 75 Pulse Rate [Right Pulse Oximeter] 75 Respiratory Rate 18 16 Blood Pressure [Le ft Arm] 125/85 Pulse Oximetry 100 100 Oxygen Delivery Me thod Room Air 04/24/22 19:26 04/24/22 23:00 04/24/22 23:00 Temperature 98.1 F Pulse Rate [Apical ] Pulse Rate [Right Pulse Oximeter] 78 Respiratory Rate 16 16 Blood Pressure [Le ft Arm] 136/87 Pulse Oximetry 98 98 Oxygen Delivery Me thod Room Air 04/24/22 23:58 04/25/22 03:57 04/25/22 08:00 Temperature 98.4 F 98.8 F Pulse Rate [Apical ] Pulse Rate [Right Pulse Oximeter] 79 85 Respiratory Rate 18 18 Blood Pressure [Le ft Arm] 127/77 134/88 Pulse Oximetry 98 99 98 Oxygen Delivery Me thod Room Air Room Air 04/25/22 08:00 Temperature 98.4 F Pulse Rate [Apical ] Pulse Rate [Right Pulse Oximeter] 65 Respiratory Rate 16 Blood Pressure [Le ft Arm] 134/86 Pulse Oximetry 98 Oxygen Delivery Me thod Room Air Labs/Imaging Labs Labs: White blood cell count is normal. Hemoglobin is stable. Electrolytes within normal limits Progress Note: A&P Assessment and plan (1) Acquired intussusception of intestine: Status: Acute (2) S/P small bowel resection: Status: Acute Plan Richard is a 21-year-old female who is postop day 2 status post ex lap and resection of a small bowel intussusception likely secondary to Meckel's diverticulum. We again discussed the surgery and recovery today. -continue maintenance fluids and clear liquids until return of bowel function -IV/p.o. medications for pain. Will continue Toradol for now. -hemoglobin is stable so will start Lovenox for DVT prophylaxis. -continue to encourage ambulation and IS -awaiting pathology results
[2022-04-25] MEDS: LACTATED RINGERS 1000 ML 1,000 ML 75 ML IV (13:20)
--- NOTE | 2022-04-25 18:10 | PC.NURSE ---
End of shift note: Alert and oriented. PRN [place] given x1. VSS on room air, denies N/V/SOB. Up independently in room/BR and ambulating in hallway. LR at 75mL/hr. Midline incision dressing C/D/I. Pt tolerating clear liquid diet. Bowel sounds hypoactive, no BM and not passing gas. Pt. resting comfortably between cares and family at bedside on and off throughout the day.
[2022-04-25] MEDS: ENOXAPARIN 40 MG/0.4 ML INJ SUBCUT (20:26)
[2022-04-26] VITALS (7 sets, daily range): BP systolic 93–129; BP diastolic 61–90; PULSE 88–95; RESP 16–18; TEMP 36.8–37.2; O2SAT 95–100
[2022-04-26] MEDS: LACTATED RINGERS 1000 ML 1,000 ML 75 ML IV ×2 (00:06→11:57)
[2022-04-26] MEDS: HYDROCODONE-ACETAMIN 5-325 MG 1 TAB PO ×3 (05:36→19:03)
--- NOTE | 2022-04-26 06:27 | PC.NURSE ---
Status [id number] Alert and oriented. Pleasant and cooperative. PRN norco given x2 this shift. Continues on clear liquids and tolerating. Denies nausea. LR at 75mL/hr. VSS on room air. Bowel sounds hypoactive in RUQ and minimal in all other quadrants at first assessment. Towards morning, bowel sounds more active in upper quadrants and hypoactive in lower quadrants. Denies passing flatus but has been burping. No BM this shift. Up independently. Pt has been ambulating frequently in the halls. Midline abdominal dressing CDI. Pt observed resting between cares. ??
[2022-04-26] MEDS: KETOROLAC 15 MG/ML inj IVP (08:29)
[2022-04-26] MEDS: SERTRALINE 50 MG TABLET PO (08:29)
--- NOTE | 2022-04-26 11:54 | PM.GSPN ---
Subjective Subjective Date Seen: 04/26/22 Interval history: Richard is doing well today. She is not passing gas. She has been having some belching for a couple of days but no nausea. She feels as though things are moving. She is tolerating clears. She has been up ambulating. Pain is controlled. Exam Narrative: Exam Narrative: General: No acute distress CV: Regular rate and rhythm Pulmonary: Clear to auscultation bilaterally Abdomen: Very mildly distended. Ecchymosis around incision without erythema. Abdomen is soft and very minimally tender. She does have bowel sounds noted. Const: Vital Signs, click to edit/add: Vital Signs - 24 hr 04/25/22 12:20 04/25/22 15:00 04/25/22 15:00 Temperature 98.2 F Pulse Rate [Apical ] 69 Pulse Rate [Right Pulse Oximeter] 90 Respiratory Rate 16 16 Blood Pressure [Le ft Arm] 120/77 Pulse Oximetry 97 90 Oxygen Delivery Me thod Room Air 04/25/22 16:00 04/25/22 20:30 04/25/22 23:41 Temperature 98.2 F 98.5 F 98.2 F Pulse Rate [Apical ] Pulse Rate [Right Pulse Oximeter] 90 69 75 Respiratory Rate 16 18 16 Blood Pressure [Le ft Arm] 131/84 129/82 116/65 Pulse Oximetry 100 99 97 Oxygen Delivery Me thod Room Air Room Air Room Air 04/25/22 23:00 04/25/22 23:00 04/26/22 03:47 Temperature 98.3 F Pulse Rate [Apical ] Pulse Rate [Right Pulse Oximeter] 75 93 Respiratory Rate 16 18 Blood Pressure [Le ft Arm] 129/74 Pulse Oximetry 97 97 Oxygen Delivery Me thod Room Air 04/26/22 07:00 04/26/22 07:00 Temperature 98.9 F Pulse Rate [Apical ] 89 Pulse Rate [Right Pulse Oximeter] 89 Respiratory Rate 16 Blood Pressure [Le ft Arm] Pulse Oximetry 95 100 Oxygen Delivery Me thod Room Air Progress Note: A&P Assessment and plan (1) S/P small bowel resection: Status: Acute Assessment and Plan: Richard is postop day 3 status post ex lap and small bowel resection for small bowel intussusception caused by likely Meckel's diverticulum. -awaiting return of bowel function. Encourage her to go slowly with fluids until she is passing gas or has a bowel movement. -okay to saline lock IV fluids if patient is tolerating p.o. -continue Lovenox for DVT prophylaxis -encourage ambulation/IS -awaiting past
--- NOTE | 2022-04-26 15:57 | PC.NURSE ---
Pt UAL in room and hallway. Toradol 15 mg IV for pain 3 with activity and 1 at rest. Pt passed flatus around 1130 am, followed by 2 small loose bms with burgundy blood apparent in the toilet water. Diet advance to full liquids. RN reported this observation to Dr. Rucker who will be in to see patient for possible discharge later this evening. [place] one tab provided to patient for pain 4 out of 10 this afternoon. Report to Lisa Sims RN for evening shift.
[2022-04-26] MEDS: ENOXAPARIN 40 MG/0.4 ML INJ SUBCUT (20:03)
[2022-04-27] MEDS: LACTATED RINGERS 1000 ML 1,000 ML 75 ML IV (01:52)
[2022-04-27 01:58] VITALS: BP 97/56; PULSE 76; RESP 16; TEMP 36.9; O2SAT 98
[2022-04-27] MEDS: HYDROCODONE-ACETAMIN 5-325 MG 1 TAB PO ×2 (02:05→09:28)
--- NOTE | 2022-04-27 06:04 | PC.NURSE ---
Pt is pleasant and cooperative. She is up Independantly in room. Abdominal incision covered with drsg. CDI no drainage. BT are + she is passing flatus and had a BM yesterday. She is tolerating her diet without N/V. Pt looking to go home today.
[2022-04-27 06:08] VITALS: TEMP 36.9
--- NOTE | 2022-04-27 09:15 | P.DS_ITS ---
DS: Providers Provider Date Seen: 04/27/22 Date of admission: 04/23/22 23:28 Primary care physician: Ericka Worthington MD Admitting Clinician: Leidy Rucker MD Attending Physician on discharge: Leidy Rucker MD DS: Diagnosis Discharge Diagnosis (1) S/P small bowel resection: Status: Acute (2) Acquired intussusception of intestine: Status: Acute (3) Meckels diverticulum: Status: Acute (4) Hypokalemia: Status: Acute Problem details: Resolved DS: Summary Hospital Course Hospital Course: The patient is a 21-year-old female who presented to the emergency department with severe abdominal pain. She was found to have likely intussusception on CT scan. She was taken to the operating room for emergent exploration. There she had resection of her small bowel and was found to have intussusception with a Meckel's diverticulum likely. She was admitted to the hospital. By postop day 3 she had return of bowel function and had excellent pain control on oral meds. She did have a small amount of blood in her 1st 2 bowel movements so she was observed overnight. There were no further bloody bowel movements during the hospital stay and she was deemed safe for discharge home. Time Spent with Patient Time attestation: Total time spent providing and/or coordinating discharge services: Exam Narrative: Exam Narrative: General: No acute distress CV: Regular rate and rhythm Respiratory: Clear to auscultation bilaterally Abdomen: Very mildly protuberant. Nontender to palpation. Incision without erythema. Const: Vital Signs, click to edit/add: Vital Signs - 24 hr 04/26/22 11:00 04/26/22 15:00 04/26/22 15:00 Temperature 98.5 F 98.9 F Pulse Rate [Apical ] 88 Pulse Rate [Right Pulse Oximeter] 88 95 Respiratory Rate 16 16 Blood Pressure [Le ft Arm] 93/61 107/68 Pulse Oximetry 97 98 98 Oxygen Delivery Me thod Room Air Room Air 04/26/22 15:00 04/26/22 19:05 04/26/22 20:09 Temperature 98.5 F 98.5 F Pulse Rate [Apical ] Pulse Rate [Right Pulse Oximeter] 95 90 Respiratory Rate 16 16 Blood Pressure [Le ft Arm] 125/90 H Pulse Oximetry 100 Oxygen Delivery Me thod Room Air 04/27/22 01:58 04/26/22 23:00 04/27/22 06:08 Temperature 98.4 F 98.4 F Pulse Rate [Apical ] 76 Pulse Rate [Right Pulse Oximeter] 76 Respiratory Rate 16 Blood Pressure [Le ft Arm] 97/56 L Pulse Oximetry 98 98 Oxygen Delivery Me thod Room Air Discharge Plan Discharge Disposition: Home, Self-Care Date of Admission: 04/23/22 23:28 Primary Care Provider: Ericka Worthington I Condition: Improved Anticipated Discharge Date/Time: 04/27/22 09:05 Discharge Medications: New hydrocodone-acetaminophen 5-325 mg Tablet 1 tab PO Q6H PRN (Reason: Pain) Qty: 25 0RF Continued sertraline 50 mg tablet 50 mg PO DAILY Discharge Orders: Discharge Order (Routine); Ordered 04/27/22 Ordered By: Leidy Rucker Patient Education: Bowel Resection (GEN) Additional Instructions: Wound care: Your sutures are under the skin and will dissolve over time. Leave steri strips (white bandages) over incisions until they fall off (or remove after 7 days). OK to shower but avoid bathing, soaking or swimming for 2 weeks. Pat the incisions dry. No need to wash or scrub the area. Apply ice to the area as needed for swelling. It is also OK to use a heating pad if this provides more comfort to you. Pain control: You were prescribed a pain medication. This medication contains acetaminophen (Tylenol). If you are taking your prescribed pain pills 4 times daily, do not take additional acetaminophen. As your pain improves, you can try taking acetaminophen instead of the prescribed pain pill. It is ok to take Ibuprofen or Naproxen (per directions on packaging). This medication helps with inflammation and swelling. Take an [id number] stool softener while you are taking prescribed pain medications to help alleviate constipation. I recommend Senna and/or Colace. Take as directed on package. If you have not had a bowel movement in 3 days, try taking Miralax as directed on the package. All of these are available over the counter. Follow-up Follow up with Dr. Rucker in 3-4 weeks Please call if you are experiencing severe pain, nausea, vomiting, difficulty urinating, fever or have not had bowel movement in 4 days after surgery. Activity Level: No strenuous activity Activity Detail: No lifting > 20 pounds for 4 weeks. Discharge Diet: Regular Follow Up Appointments: Leidy Rucker MD [Staff Physician] - Forms: [employer] Info Instructions
[2022-04-27 09:26] VITALS: BP 105/71; PULSE 79; RESP 16; TEMP 36.4; O2SAT 98
[2022-04-27] MEDS: SERTRALINE 50 MG TABLET PO (09:28)
[2022-04-27 09:41] VITALS: BP 136/84; PULSE 60; RESP 16; TEMP 36.9
== END 2022-04-27 10:33 | disposition home or self-care (01) | DRG 221 ==
LOC: ED 18:29 → SS 19:12 → MEDSURG 23:27 → SS 23:29 → MEDSURG 23:29
PROVIDERS: Admitting Provider Surgery; Emergency Provider Family Medicine; PCP Family Medicine; Visit Provider Surgery
PROC: 0DT80ZZ Resection of Small Intestine, Open Approach (ICD-10-PCS; CPT 49000; 2022-04-23 20:15)
DX: K56.1 Intussusception (principal); Q43.0 Meckel's diverticulum (displaced) (hypertrophic); R10.30 Lower abdominal pain, unspecified; E87.6 Hypokalemia; F32.A Depression, unspecified; F41.9 Anxiety disorder, unspecified; Z72.0 Tobacco use; Z53.31 Laparoscopic surgical procedure converted to open procedure
CPT/HCPCS: 00840; 36415; 74177; 76942; 80048; 80076; 80306; 81001; 82077; 82150; 83605; 83690; 84703; 85025; 87086; 87635; 88304; 88307; 99140; 99285; A4344; A9270; C9290; J0131; J0330; J1100; J1170; J1200; J1650; J1885; J2060; J2405; J2543; J2704; J3010; J3475; J3480; J3490; J7030; J7120; Q9967; S0166

== ENCOUNTER 2022-11-15 13:30 | Outpatient (RCR) | payer BC, SELFPAY | END 2023-02-16 13:35 | disposition home or self-care (01) | PROVIDERS: PCP Family Medicine; Visit Provider Dentist General Practice | DX: M26.609 Unspecified temporomandibular joint disorder, unspecified side (principal); H92.03 Otalgia, bilateral; R51.9 Headache, unspecified; M79.18 Myalgia, other site; Z74.09 Other reduced mobility; M26.629 Arthralgia of temporomandibular joint, unspecified side; Z51.89 Encounter for other specified aftercare | CPT/HCPCS: 97110; 97140; 97161 ==